=== PATIENT | male | born 1955 | race African-American/Black ===

== ENCOUNTER 2018-07-24 09:54 | Emergency (ER) | payer MEDICAID ==
[~2018-07-24] VITALS: Ht 188 cm; Wt 84.0 kg
[2018-07-24] MEDS ORDERED: DEXAMETHASONE 10 MG/ML VIAL IM ONE (11:15)
[2018-07-24] MEDS ORDERED: ACETAMINOPHEN 325MG TABLET PO ONE (11:15)
[2018-07-24 11:32] VITALS: BP 115/68
== END 2018-07-24 14:33 | disposition home or self-care (01) ==
LOC: ER 09:54
DX: M54.31 Sciatica, right side (principal); F12.90 Cannabis use, unspecified, uncomplicated
CPT/HCPCS: 96372; 99283; J1100

== ENCOUNTER 2018-08-21 01:36 | Emergency (ER) | payer MEDICAID ==
[~2018-08-21] VITALS: Ht 180.3 cm; Wt 72.7 kg
[2018-08-21] MEDS ORDERED: KETOROLAC 60MG/2ML VIAL IM ONE (03:15)
[2018-08-21 05:46] VITALS: BP 139/79
== END 2018-08-21 05:51 | disposition home or self-care (01) ==
LOC: ER 01:36
DX: S93.602A Unspecified sprain of left foot, initial encounter (principal); S93.402A Sprain of unspecified ligament of left ankle, initial encounter; W01.0XXA Fall on same level from slipping, tripping and stumbling without subsequent striking against object, initial encounter; Y93.89 Activity, other specified; Y92.89 Other specified places as the place of occurrence of the external cause; S80.02XA Contusion of left knee, initial encounter; M54.30 Sciatica, unspecified side; M19.90 Unspecified osteoarthritis, unspecified site; F12.90 Cannabis use, unspecified, uncomplicated
CPT/HCPCS: 73562; 73610; 73630; 96372; 99284; J1885

== ENCOUNTER 2018-11-24 07:45 | Emergency (ER) | payer MEDICAID ==
[~2018-11-24] VITALS: Ht 182.9 cm; Wt 86.0 kg
[2018-11-24 11:02] VITALS: BP 116/71
== END 2018-11-24 14:47 | disposition left against medical advice (07) ==
LOC: ER 07:52
DX: Z53.21 Procedure and treatment not carried out due to patient leaving prior to being seen by health care provider (principal)

== ENCOUNTER 2018-12-16 12:23 | Emergency (ER) | payer MEDICAID ==
[~2018-12-16] VITALS: Ht 182.9 cm; Wt 93.0 kg
[2018-12-16] MEDS ORDERED: KETOROLAC 60MG/2ML VIAL IM ONE (14:45)
[2018-12-16 14:50] VITALS: BP 130/39
== END 2018-12-16 15:05 | disposition home or self-care (01) ==
LOC: ER 12:49
DX: S39.012A Strain of muscle, fascia and tendon of lower back, initial encounter (principal); F12.10 Cannabis abuse, uncomplicated; Z98.890 Other specified postprocedural states; X50.9XXA Other and unspecified overexertion or strenuous movements or postures, initial encounter; Y93.89 Activity, other specified; Y92.89 Other specified places as the place of occurrence of the external cause; Y99.8 Other external cause status
CPT/HCPCS: 96372; 99283; J1885

== ENCOUNTER 2018-12-19 08:28 | Emergency (ER) | payer MEDICAID ==
[~2018-12-19] VITALS: Ht 182.9 cm; Wt 91.0 kg
[2018-12-19] MEDS ORDERED: KETOROLAC 15MG/ML VIAL IM ONE (13:30)
[2018-12-19] MEDS ORDERED: OXYCODONE HCL/ACETAMINOPHEN 5/325MG TABLET PO ONE (13:30)
[2018-12-19 13:45] VITALS: BP 102/62
== END 2018-12-19 13:46 | disposition home or self-care (01) ==
LOC: ER 08:28
DX: G89.29 Other chronic pain (principal); M54.5 Low back pain; M54.12 Radiculopathy, cervical region; F12.10 Cannabis abuse, uncomplicated; Z98.890 Other specified postprocedural states
CPT/HCPCS: 96372; 99283; J1885

== ENCOUNTER 2018-12-22 11:07 | Emergency (ER) | payer MEDICAID, OTHER ==
[~2018-12-22] VITALS: Ht 182.9 cm; Wt 92.0 kg
[2018-12-22 11:32] VITALS: BP 141/70
== END 2018-12-22 12:38 | disposition home or self-care (01) ==
LOC: ER 11:07
DX: Z02.79 Encounter for issue of other medical certificate (principal); S39.012D Strain of muscle, fascia and tendon of lower back, subsequent encounter; X58.XXXD Exposure to other specified factors, subsequent encounter
CPT/HCPCS: 99281

== ENCOUNTER 2023-08-26 13:42 | Emergency (ER) | payer OTHER ==
[~2023-08-26] VITALS: Ht 182.9 cm; Wt 90.0 kg
[2023-08-26 13:47] VITALS: O2SAT 99
[2023-08-26] MEDS ORDERED: ASPIRIN 81MG TABLET PO ONE (14:00)
[2023-08-26 14:23] LABS: BG BASE EXCESS 2.3 mmol/L (-2.0-2.0); BG CARBOXYHEMOGLOBIN 1.4 % (0.5-1.5); BG DEOXYHEMOGLOBIN 5.4 % (0.0-5.0); BG FRACTION INSPIRED OXYGEN 21; BG HCO3 ACT 23.6 mmol/L (22.0-26.0); BG METHEMOGLOBIN 0.2 % (0.0-1.5); BG OXYGEN SATURATION 94.5 % (92.0-98.5); BG PCO2 28.1 mmHg (35.0-45.0); BG PH 7.542 (7.350-7.450); BG PO2 68.1 mmHg (75.0-100.0); BG SAMPLE SITE RIGHT RADIAL; BG TOTAL HEMOGLOBIN 14.7 g/dL (12.0-18.0); BG VENT MODE ROOM AIR
[2023-08-26 14:46] VITALS: BP 154/90; PULSE 78; RESP 21; TEMP 98.2
== END 2023-08-26 15:31 | disposition left against medical advice (07) ==
LOC: ER 14:09
DX: R07.9 Chest pain, unspecified (principal); M19.90 Unspecified osteoarthritis, unspecified site; I10 Essential (primary) hypertension; M54.30 Sciatica, unspecified side; F12.90 Cannabis use, unspecified, uncomplicated; Z98.890 Other specified postprocedural states; Z20.822 Contact with and (suspected) exposure to COVID-19
CPT/HCPCS: 82962; 87804 ×2; 71045; 82805; 82375; 93005; 99285; 87426; 36600; Z7610 ×4; C9803